=== PATIENT | male | born 1990 | race Caucasian/White ===

== ENCOUNTER 2022-04-06 14:24 | Emergency (ER) | payer SELFPAY ==
[~2022-04-06] VITALS: Ht 177.8 cm; Wt 86.2 kg
[2022-04-06 14:45] VITALS: BP 132/74
--- NOTE | 2022-04-06 14:58 | NUR ---
PT BIB [facility], PT FOUND DOWN BY BYSTANDERS WITH POSSIBLE SEIZURE LIKE ACTIVITY. PT GCS 15 REPORTS USING FENTANYL, METH AND MARIJUANA.
[2022-04-06] MEDS ORDERED: NACL 0.9% 1,000 ML IV ONE (15:00)
--- NOTE | 2022-04-06 15:10 | NUR ---
PT REQUESTING TO LEAVE AMFrancisca DANIELS AT BEDSIDE
--- NOTE | 2022-04-06 15:15 | NUR ---
Patient does not wish to proceed with medical care recommended by FRANCES. Patient given information related to possible complications, up to and including , which could occur as a result of leaving hospital at this time. Patient verbalizes understanding of risks involved leaving against medical advice. Patient has signed AMA form.
== END 2022-04-06 15:14 | disposition left against medical advice (07) ==
LOC: MED 14:24
DX: T40.411A Poisoning by fentanyl or fentanyl analogs, accidental (unintentional), initial encounter (principal); F15.90 Other stimulant use, unspecified, uncomplicated; F12.90 Cannabis use, unspecified, uncomplicated; Y92.89 Other specified places as the place of occurrence of the external cause
CPT/HCPCS: 99283